=== PATIENT | female | born 1960 | race Caucasian/White ===

== ENCOUNTER 2016-11-12 18:33 | Observation (INO) | payer MEDICAID ==
[2016-11-12] MEDS ORDERED: HYDROmorphone HCL 1 MG/ML DISP.SYRIN IM ONE (19:20)
[2016-11-12] MEDS ORDERED: HYDROmorphone HCL 1 MG/ML DISP.SYRIN ONE (19:21)
[2016-11-12] MEDS ORDERED: HYDROCORTISONE SOD SUCCINATE 50 MG/ML VIAL IV ONE (19:22)
[2016-11-12 19:55] LABS: Hematocrit 37.1 % (37.0-47.0); Hemoglobin 12.4 gm/dL (12.5-16.0); Mean Cell Volume 87.1 fl (78-100); Mean Corpuscular Hemoglobin 29.1 pg (27-31); Mean Corpuscular Hgb Conc 33.4 g/dl (32-36); Mean Platelet Volume 8.9 fl (6.0-9.5); Platelet Count 469 K/mm3 (150-450); Red Blood Count 4.26 M/mm3 (4.2-5.4); Red Cell Distribution Width 15.6 % (11.5-14.0); White Blood Count 14.9 K/mm3 (4.0-10.5)
--- OUTSIDE RECORDS SUMMARY | 2016-11-12 19:56 | XMS REPORT | Continuity of Care Document ---
:1960 Author Organization [employer] Address [place] [address] Care Team Providers Name Role Phone Shaw Diaz V Primary Care Provider [phone] Source Comments This disclosure is being made pursuant to the EMUZE program and maynot contain all information available regarding this patient.[employer] Active Allergies and Adverse Reactions Allergen Noted Date Severity Reactions Comments Carbamazepine 09/11/2016 Unknown Combigan 09/11/2016 Unknown Doxepin Hcl 09/11/2016 Unknown Neurontin 09/11/2016 Unknown Pcn 09/11/2016 Unknown Pneumovax 23 09/11/2016 Unknown Spiriva Handihaler 09/11/2016 Unknown Sulfa Antibiotics 09/11/2016 Unknown Trazodone 09/11/2016 Unknown Triazolam 09/11/2016 Unknown Current Medications Be aware that medications may not be up to date as of this document. Alwaysverify current medications with the patient. Prescription Sig. Disp. Refills Start Date End Date Status acetaminophen Take 650 mg by Active (TYLENOL) 325 MG mouth 4 (four) tablet times daily as needed. Take with Tramadol ibuprofen Take 1 tablet 10/04/2016 Active (ADVIL,MOTRIN) 600 by mouth 3 MG tablet (three) times daily. traMADol (ULTRAM) Take 1 tablet 09/15/2016 Active 50 MG tablet by mouth 3 (three) times daily. montelukast Take 1 tablet 30 tablet 6 10/06/2016 Active (SINGULAIR) 10 MG by mouth tablet daily. VENTOLIN HFA 108 Inhale 1-2 1 Inhaler 5 10/06/2016 Active (90 Base) MCG/ACT puffs into the inhaler lungs every 4 (four) to 6 (six) hours as needed. zolpidem (AMBIEN) Take 1 tablet 30 tablet 0 10/06/2016 Active 10 MG tablet (10 mg total) by mouth nightly. promethazine Take 1 tablet 15 tablet 1 10/23/2016 Active (PHENERGAN) 25 MG by mouth every tablet 6 (six) hours as needed for Nausea. ALPRAZolam (XANAX) Take 1 tablet 150 tablet 0 11/03/2016 Active 1 MG tablet (1 mg total) by mouth 5 (five) times daily as needed. carisoprodol (SOMA) Take 1 tablet 150 tablet 0 11/03/2016 Active 350 MG tablet (350 mg total) by mouth 3 (three) times daily as needed for Muscle spasms. Take one tablet by mouth four times daily and 2 tablets at bedtime HYDROcodone-acetami Take 1 tablet 180 tablet 0 11/03/2016 Active nophen (NORCO) by mouth every 10-325 MG per 4 (four) to 6 tablet (six) hours as needed. for pain gabapentin Take 1 capsule 90 capsule 6 11/03/2016 Active (NEURONTIN) 100 MG by mouth 3 capsule (three) times daily. simvastatin (ZOCOR) Take 1 tablet 30 tablet 5 11/03/2016 Active 40 MG tablet by mouth nightly. sulfamethoxazole-tr Take 1 tablet 28 tablet 0 11/03/2016 Active imethoprim (BACTRIM by mouth 2 7 DS,SEPTRA DS) (two) times 800-160 MG per daily. tablet traMADol (ULTRAM) Take 2 tablets 240 tablet 0 11/04/2016 Active 50 MG tablet (100 mg total) by mouth 4 (four) times daily as needed. Take with tylenol mupirocin to affected 22 g 0 11/10/2016 Active (BACTROBAN) 2 % area. ointment ALPRAZolam (XANAX) Take 1 tablet 150 tablet 0 10/06/2016 Discontinued 1 MG tablet (1 mg total) 7 by mouth 5 (five) times daily as needed. carisoprodol (SOMA) Take 1 tablet 150 tablet 0 10/06/2016 Discontinued 350 MG tablet (350 mg total) 7 by mouth 3 (three) times daily as needed for Muscle spasms. Take one tablet by mouth four times daily and 2 tablets at bedtime gabapentin Take 1 capsule 90 capsule 6 10/06/2016 Discontinued (NEURONTIN) 100 MG by mouth 3 7 capsule (three) times daily. HYDROcodone-acetami Take 1 tablet 180 tablet 0 10/06/2016 Discontinued nophen (NORCO) by mouth every 7 10-325 MG per 4 (four) to 6 tablet (six) hours as needed. for pain simvastatin (ZOCOR) Take 1 tablet 30 tablet 5 10/06/2016 Discontinued 40 MG tablet by mouth 7 nightly. traMADol (ULTRAM) Take 2 tablets 240 tablet 0 10/06/2016 Discontinued 50 MG tablet (100 mg total) 7 by mouth 4 (four) times daily as needed. Take with tylenol mupirocin to affected 22 g 0 11/03/2016 Discontinued (BACTROBAN) 2 % area. 7 ointment Hospital, Clinic, or Other Ordered Dose Route Frequency Start Date End Date Status Facility Administered Medication triamcinolone acetonide 40mg IM Once 11/03/2016 11/03/2016 Ended (KENALOG-40) injection Active Problems Problem Noted Date Neuropathy (HCC) Most Recent Encounters Date Type Specialty Providers Description 11/10/2016 Refill Family Medicine Patricia Eden RN Cellulitis of both ears (Primary Dx) 11/04/2016 Refill Family Patricia Mills RN 11/03/2016 Office Visit Family Shaw Tejada DO Cellulitis of both ears (Primary Dx); Swelling of eyelid, left; Swelling of eyelid, right; Chronic bilateral low back pain, with sciatica presence unspecified; Anxiety; Brachial plexus neuralgia 10/23/2016 Refill Family Patricia Mills RN Nausea (Primary Dx) 10/06/2016 Office Visit Family Shaw Tejada DO Closed fracture of multiple ribs of left side, initial encounter (Primary Dx); Chronic low back pain, unspecified back pain laterality, with sciatica presence unspecified; Carotid artery occlusion without infarction, right; Anxiety; Brachial plexus neuralgia; Perennial allergic rhinitis, unspecified allergic rhinitis trigger 10/02/2016 Refill Family Praveen Peterson LPN Other insomnia ( Primary Dx) 10/02/2016 Telephone [facility] Praveen Peterson LPN Medication Question (Request) 10/02/2016 Refill Family Praveen Peterson LPN 10/02/2016 Telephone Family Medicine Praveen Redd LPN Medication Question (Request) 09/14/2016 Refill Family Medicine Patricia Eden, RN 09/11/2016 Office Visit Family Medicine Shaw Diaz DO Bronchitis ( Primary Dx); Perennial allergic rhinitis, unspecified allergic rhinitis trigger; Brachial plexus neuralgia; Anxiety 09/11/2016 Abstract Family Medicine Dottie Collins, RN Social History Tobacco Use Types Packs/Day Years Used Date Current Every Day Smoker 1 20 Alcohol Use Drinks/Week oz/Week Comments No Last Filed Vital Signs Vital Sign Reading Time Taken Blood Pressure 144/80 11/03/2016 11:46 AM CDT Pulse 105 11/03/2016 11:46 AM CDT Temperature 35.3 C (95.5 F) 09/11/2016 1:35 PM CDT Respiratory Rate 16 11/03/2016 11:46 AM CDT Height - - Weight 43.001 kg (94 lb 12.8 oz) 11/03/2016 11:46 AM CDT Body Mass Index - - Oxygen Saturation 97% 11/03/2016 11:46 AM CDT Plan of Care Health Maintenance Due Date Last Done Comments Hepatitis C Screening 02/05/1980 Pneumococcal Medium Risk 19-64 yo (1 of 1 - PPSV23) 1981 Tetanus/Pertussis (1 - Tdap) 1981 Pap Smear 1983 Colonoscopy 02/05/2012 Mammogram 02/05/2012 Well Adult Visit 02/05/2012 Influenza Immunization (#1) 2016 Results from Last 3 Months Not on file
[2016-11-12 19:57] LABS: Total Cells Counted 100
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
[2016-11-12] MEDS ORDERED: NORMAL SALINE IV SCH (20:00)
[2016-11-12] MEDS ORDERED: HYDROCORTISONE SODIUM SUCC IV SCH (20:00)
[2016-11-12 20:09] LABS: Albumin * 2.7 gm/dl (3.4-5.0); Anion Gap 11.3 mmol/L (6.8-13.8); BUN/Creatinine Ratio 9.3 (9.0-21.6); Bilirubin, Total 0.1 mg/dL (0.0-1.1); CRP 0.3 mg/dL (0.0-0.9); Ca. Corrected For Albumin 9.1 mg/dL (8.4-10.2); Calcium * 8.4 mg/dL (7.9-10.9); Carbon Dioxide 27.3 mmol/L (24-32.6); Potassium 3.6 mmol/L (3.4-4.6)
[2016-11-12] MEDS ORDERED: HYDROmorphone HCL 1 MG/ML DISP.SYRIN IV ONE (20:09)
[2016-11-12 20:14] LABS: Atypical (Reactive) Lymph 1 % (0-2); Basophil 2 % (0-1); Eosinophil 16 % (0-3); Lymphocyte 18 % (20-51); Monocyte 5 % (0-9); Neutrophil 58 % (42-75); Neutrophil # 8.6 K/mm3 (1.3-6.0); Platelet Estimate Increased (NORMAL); RBC Morphology Normal (NORMAL)
[2016-11-12] MEDS ORDERED: diphenhydrAMINE HCL 50 MG/ML VIAL ONE (20:39)
[2016-11-12] MEDS ORDERED: ONDANSETRON HCL/PF 2 MG/ML VIAL ONE (20:39)
[2016-11-12] MEDS ORDERED: diphenhydrAMINE HCL 50 MG/ML VIAL IV ONE ×2 (20:42→22:41)
[2016-11-12] MEDS ORDERED: ONDANSETRON HCL/PF 2 MG/ML VIAL IV ONE (20:42)
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
--- OUTSIDE RECORDS SUMMARY | 2016-11-12 22:00 | XMS REPORT | Continuity of Care Document ---
:1960 Author Organization [facility] [place] [address] Care Team Providers Name Role Phone Shaw Diaz V Primary Care Provider [phone] Source Comments This disclosure is being made pursuant to the [employer] program and maynot contain all information available regarding this patient.[facility] Active Allergies and Adverse Reactions Allergen Noted [...] Other insomnia ( Primary Dx) 10/02/2016 Telephone [facility] Praveen Peterson LPN Medication Question (Request) [...]
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
[2016-11-12] MEDS: FAMOTIDINE 20 MG TABLET PO SCH (23:18)
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
[2016-11-12] MEDS: METHYLPREDNISOLONE SOD SUCC 60 MG in WATER FOR INJ.,BACTERIOSTATIC 0 ML IV SCH (23:37)
[2016-11-13] MEDS: NORMAL SALINE 1,000 ML IV PRN ×2 (00:05→04:34)
[2016-11-13] MEDS ORDERED: KETOROLAC TROMETHAMINE 30 MG/ML VIAL IV PRN (00:13)
[2016-11-13] MEDS ORDERED: ALBUTEROL SULFATE 200 PUFF INHALER IH PRN (00:15)
[2016-11-13] MEDS ORDERED: ZOLPIDEM TARTRATE 10 MG TABLET PO PRN (00:15)
[2016-11-13] MEDS: HYDROcodone/ACETAMINOPHEN 1 EACH TABLET PO PRN ×2 (00:32→07:30)
[2016-11-13] MEDS: FAMOTIDINE 20 MG TABLET PO SCH (04:01)
[2016-11-13] MEDS: METHYLPREDNISOLONE SOD SUCC 60 MG in WATER FOR INJ.,BACTERIOSTATIC 0 ML IV SCH (04:02)
[2016-11-13] MEDS ORDERED: diphenhydrAMINE HCL 50 MG/ML VIAL IV PRN (04:45)
[2016-11-13 06:11] VITALS: BP 141/81
[2016-11-13] MEDS ORDERED: ALBUTEROL SULFATE 2.5 MG/3 ML VIAL.NEB IH PRN (06:20)
[2016-11-13] MEDS ORDERED: ALPRAZolam 1 MG TABLET PO PRN (07:36)
[2016-11-13] MEDS ORDERED: ASPIRIN 81 MG TABLET.DR PO SCH (09:00)
--- NOTE | 2016-11-13 09:44 | DS ---
Description of Stay: Did well with her rash following standard treatment for allergic treatment. While here, pushed for pain medication and to smoke cigarettes. Declined nicotine patches, stating that they didn't work. Procedures Performed: none Discharge Disposition: Home self care Disposition: Home self-care Condition: Fair Discharge Diet: General/regular food Referrals: Joel Fuchs DO [Primary Care Provider] - Problem Oriented Discharge Instructions to Patient/Family: Drug Rash Additional Patient Instructions (free text): Avoid sulfa Follow up with your doctor in 3 days. Prescriptions (Any new or edited meds): Diphenhydramine HCl [Benadryl] 25 mg PO QID #40 capsule Ranitidine HCl [Zantac] 150 mg PO BID #20 tab predniSONE [Deltasone] 20 mg PO BID #20 tablet Complete Home Medications List: Complete Home Medication List: Singulair 10 mg PO HS 11/17/12 Tramadol HCl 50 mg PO QID 11/17/12 HYDROcodone/ACETAMINOPHEN [[place] 5-325] 1 tab PO Q4H PRN #40 tab 12/09/15 Aspirin [Aspirin EC] 81 mg PO DAILY #30 tablet. 12/22/15 Simvastatin [Zocor] 40 mg PO HS #30 tab 12/22/15 Zolpidem Tartrate [Ambien] 10 mg PO HS PRN #30 tab 12/22/15 ALPRAZolam [Xanax] 1 mg PO QID PRN 01/20/16 Albuterol Sulfate [Ventolin HFA] 2 puff IH Q6H PRN 01/20/16 Carisoprodol [Soma] 350 mg PO TID 11/12/16 Carisoprodol [Soma] 700 mg PO HS 11/12/16 Diphenhydramine HCl [Benadryl] 25 mg PO QID #40 capsule 11/13/16 Ranitidine HCl [Zantac] 150 mg PO BID #20 tab 11/13/16 predniSONE [Deltasone] 20 mg PO BID #20 tablet 11/13/16
[2016-11-13] MEDS ORDERED: MONTELUKAST SODIUM 10 MG TABLET PO SCH (21:00)
[2016-11-13] MEDS ORDERED: SIMVASTATIN 40 MG TABLET PO SCH (21:00)
== END 2016-11-13 11:01 | disposition home or self-care (01) ==
LOC: ER 18:33 → MS 21:51 → UNDOADMOB 21:51
PROVIDERS: ADMIT Nurse Practitioner Critical Care Medicine; ATTEND Allergy & Immunology
DX: L23.3 Allergic contact dermatitis due to drugs in contact with skin (principal); T49.0X5A Adverse effect of local antifungal, anti-infective and anti-inflammatory drugs, initial encounter; F41.8 Other specified anxiety disorders; J44.9 Chronic obstructive pulmonary disease, unspecified; Z72.0 Tobacco use; J45.909 Unspecified asthma, uncomplicated; E78.5 Hyperlipidemia, unspecified; Z76.5 Malingerer [conscious simulation]
CPT/HCPCS: 36415; 80053; 85025; 85652; 86140; 96365; 96372; 96375; 96376; 99284; G0378; J2405

== ENCOUNTER 2017-03-01 12:02 | Emergency (ER) | payer MEDICAID ==
[2017-03-01 12:37] VITALS: BP 103/76
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
== END 2017-03-01 13:27 | disposition home or self-care (01) ==
LOC: ER 12:02
DX: R07.89 Other chest pain (principal); V49.9XXD Car occupant (driver) (passenger) injured in unspecified traffic accident, subsequent encounter

== ENCOUNTER 2017-03-15 10:55 | Emergency (ER) | payer MEDICAID ==
[2017-03-15] MEDS ORDERED: KETOROLAC TROMETHAMINE 60 MG/2 ML VIAL IM ONE ×2 (12:03→12:16)
--- NOTE | 2017-03-15 12:05 | ERNOTE ---
Upper Extremity HPI - Narrative Date of Service: 03/15/17 - General Extremities Pain Location: thumb: right Time Seen by Provider: 03/15/17 11:45 Source: patient Exam Limitations: no limitations - Immun/Allergies/Home Medications Immunizations: IMMUNIZATION HX Immunizations Up to Date Yes History of Influenza Vaccine No Hx Pneumococcal Vaccination No Allergies/Adverse Reactions: Allergies Allergy/AdvReac Type Severity Reaction Status Date / Time penicillin G Allergy Verified 11/12/16 19:11 Sulfa (Sulfonamide Allergy Verified 11/12/16 19:11 Antibiotics) [Sulfa(Sulfonamide Antibiotics)] Home Medications: HOME MEDICATIONS Singulair 10 mg PO HS 11/17/12 [Last Taken Unknown] HYDROcodone/ACETAMINOPHEN [[place] 5-325] 1 tab PO Q4H PRN #40 tab 12/09/15 [Last Taken Unknown] Aspirin [Aspirin EC] 81 mg PO DAILY #30 tablet. 12/22/15 [Last Taken Unknown] Simvastatin [Zocor] 40 mg PO HS #30 tab 12/22/15 [Last Taken Unknown] Zolpidem Tartrate [Ambien] 10 mg PO HS PRN #30 tab 12/22/15 [Last Taken Unknown] Albuterol Sulfate [Ventolin HFA] 2 puff IH Q6H PRN 01/20/16 [Last Taken Unknown] Carisoprodol [Soma] 700 mg PO HS 11/12/16 [Last Taken Unknown] Diphenhydramine HCl [Benadryl] 25 mg PO QID #40 capsule 11/13/16 [Last Taken Unknown] Ranitidine HCl [Zantac] 150 mg PO BID #20 tab 11/13/16 [Last Taken Unknown] predniSONE [Deltasone] 20 mg PO BID #20 tablet 11/13/16 [Last Taken Unknown] Carisoprodol [Soma] 350 mg PO QID #56 tablet 03/01/17 [Last Taken Unknown] traMADol HCL [Ultram] 50 - 100 mg PO Q6H PRN #56 tablet 03/01/17 [Last Taken Unknown] ALPRAZolam [Xanax] 1 mg PO QID PRN #12 tablet 03/15/17 [Last Taken Unknown] Carisoprodol [Soma] 350 mg PO QID #20 tab 03/15/17 [Last Taken Unknown] Carisoprodol [Soma] 700 mg PO HS #6 tablet 03/15/17 [Last Taken Unknown] HYDROcodone/ACETAMINOPHEN [[place] 5-325 Tablet] 1 tab PO Q4H PRN #12 tab [Last Taken Unknown] - History of Present Illness Narrative: Pt. with chronic pain and anxiety comes in with R thumb pain after slamming it in betwen her dog and the side of her bed this morning. Pt. denies any numbness and tingling but does state that movement is difficult due to swelling. Pt. states that she is also out of her chronic medications at this time as she is between doctors. Review of Systems - Review of Systems Constitutional: Present: no symptoms reported. Absent: recent illness, fever, chills, weakness, fatigue, malaise EYE: Present: no symptoms reported ENT: Present: no symptoms reported Respiratory: Present: no symptoms reported. Absent: shortness of breath, cough , wheezing Cardiology: Present: no symptoms reported. Absent: chest pain, palpitations, edema Gastrointestinal/Abdominal: Present: no symptoms reported. Absent: nausea, vomiting, diarrhea Genitourinary: Present: no symptoms reported Musculoskeletal: Present: joint pain - R thumb pain, joint swelling - R thumb. Absent: back pain Skin: Present: no symptoms reported. Absent: rash, change in color, change in hair/nails Neurological: Present: no symptoms reported. Absent: headache, dizziness/light- headedness, numbness, tingling All Other Systems: All systems neg except as marked - Patient's Past Medical History Patient History - Medical: Anxiety, Chronic Pain, Depression, Glaucoma Patient History - Cardiac/Respiratory: Asthma, COPD, Hyperlipidemia, TIA Patient History - Cancer: No Hx of Cancer Patient History - Surgical Procedures: Appendectomy, Hysterectomy, T & A Patient History - Other: None - Family History Mother Family History - Medical: Family History - Cardiac/Respiratory: CVA/Stroke, Hyperlipidemia Family History - Cancer: Throat Father Family History - Medical: Family History - Cardiac/Respiratory: CVA/Stroke Family History - Cancer: No pertinent family hx Brother Family History - Medical: No pertinent hx, Diabetes Type 2 Family History - Cardiac/Respiratory: CVA/Stroke Family History - Cancer: No pertinent family hx Sister Family History - Medical: No pertinent hx Family History - Cardiac/Respiratory: No pertinent hx Family History - Cancer: No pertinent family hx - Social History Abuse History: No History of abuse Psych History: Hx of Anxiety, Hx of Depression Smoking Status: Current every day smoker Have you smoked in the past 12 months: Yes - Immunizations Immunizations Up to Date: Yes Hx Pneumococcal Vaccination: No History of Influenza Vaccine: No Physical Exam - Physical Exam General Appearance: Present: wd/wn, alert, no apparent distress Head Exam: Present: normal inspection, no evidence of injury Eye Exam: Normal inspection: bilateral, PERRL: bilateral, EOMI: bilateral Ears, Nose, Throat: Present: normal ENT inspection, normal pharynx Neck: Present: normal inspection, nontender. Absent: lymphadenopathy (R), lymphadenopathy (L) Respiratory: Present: no respiratory distress, normal breath sounds, no accessory muscle use, chest nontender, lungs clear Cardiovascular/Chest: Present: regular rate, rhythm, no murmur, normal peripheral pulses Back Exam: Present: normal inspection, normal range of motion, no CVA tenderness , no vertebral tenderness Extremity Exam: Present: bony tenderness - R distal thumb, joint swelling - R distal thumb Neurological Exam: Present: alert, oriented, normal mood/affect, no motor/ sensory deficits Skin Exam: Present: normal color, warm/dry. Absent: pallor, skin rash ED Progress - Date and Time Seen: Date and Time: 03/15/17 12:[address] Eaton and he suggests having pt. splinted and having her follow up in the office next week. - Vital Signs Patient's Vital Signs:: I have reviewed the patient's vital signs. Vital Signs: Vital Signs 03/15/17 11:10 Temperature 36.2 C L Pulse Rate 79 Respiratory 16 Rate Blood Pressure 124/71 O2 Sat by Pulse 95 Oximetry - Progress/Reassessment Chief Complaint: Hand Injury/Pain Departure Clinical Impression: Medication refill Fracture of thumb, right, closed Qualifiers: Encounter type: initial encounter Phalanx: distal Fracture alignment: displaced Qualified Code(s): S62.521A - Displaced fracture of distal phalanx of right thumb, initial encounter for closed fracture Chronic pain Qualifiers: Chronic pain type: chronic pain syndrome Qualified Code(s): G89.4 - Chronic pain syndrome - Departure Disposition: Home self-care Condition: Fair Instructions: Chronic Pain Additional Instructions: Please find chronic pain doctor and follow up with primary provider in 2-3 days. Prescriptions: ALPRAZolam [Xanax] 1 mg PO QID PRN #12 tablet PRN Reason: Anxiety Carisoprodol [Soma] 350 mg PO QID #20 tab Carisoprodol [Soma] 700 mg PO HS #6 tablet HYDROcodone/ACETAMINOPHEN [[place] 5-325 Tablet] 1 tab PO Q4H PRN #12 tab PRN Reason: Pain
[2017-03-15 12:27] VITALS: BP 148/97
== END 2017-03-15 12:28 | disposition home or self-care (01) ==
LOC: ER 10:55
PROC: 2W3GX1Z Immobilization of Right Thumb using Splint (ICD-10-PCS; principal; 2017-03-15)
DX: S62.521A Displaced fracture of distal phalanx of right thumb, initial encounter for closed fracture (principal); G89.4 Chronic pain syndrome; X58.XXXA Exposure to other specified factors, initial encounter; Y93.9 Activity, unspecified; Y92.003 Bedroom of unspecified non-institutional (private) residence as the place of occurrence of the external cause; J44.9 Chronic obstructive pulmonary disease, unspecified; E78.5 Hyperlipidemia, unspecified; F41.8 Other specified anxiety disorders; F17.200 Nicotine dependence, unspecified, uncomplicated

== ENCOUNTER 2017-04-08 15:21 | Emergency (ER) | payer MEDICAID ==
--- NOTE | 2017-04-08 17:32 | ERNOTE ---
<Bone,Te - Last Filed: 04/08/17 17:28> Medical Problem HPI - General Chief Complaint: General Assessment Time Seen by Provider: 04/08/17 17:00 - Immun/Allergies/Home Medications Immunizations: IMMUNIZATION HX Immunizations Up to Date Yes History of Influenza Vaccine No Hx Pneumococcal Vaccination No Allergies/Adverse Reactions: Allergies penicillin G Allergy (Verified 04/08/17 15:47) Sulfa (Sulfonamide Antibiotics) [Sulfa(Sulfonamide Antibiotics)] Allergy ( Verified 04/08/17 15:47) Home Medications: HOME MEDICATIONS Singulair 10 mg PO HS 11/17/12 [Last Taken Unknown] HYDROcodone/ACETAMINOPHEN [[place] 5-325] 1 tab PO Q4H PRN #40 tab 12/09/15 [Last Taken Unknown] Aspirin [Aspirin EC] 81 mg PO DAILY #30 tablet. 12/22/15 [Last Taken Unknown] Simvastatin [Zocor] 40 mg PO HS #30 tab 12/22/15 [Last Taken Unknown] Zolpidem Tartrate [Ambien] 10 mg PO HS PRN #30 tab 12/22/15 [Last Taken Unknown] Albuterol Sulfate [Ventolin HFA] 2 puff IH Q6H PRN 01/20/16 [Last Taken Unknown] Carisoprodol [Soma] 700 mg PO HS 11/12/16 [Last Taken Unknown] Diphenhydramine HCl [Benadryl] 25 mg PO QID #40 capsule 11/13/16 [Last Taken Unknown] Ranitidine HCl [Zantac] 150 mg PO BID #20 tab 11/13/16 [Last Taken Unknown] predniSONE [Deltasone] 20 mg PO BID #20 tablet 11/13/16 [Last Taken Unknown] Carisoprodol [Soma] 350 mg PO QID #56 tablet 03/01/17 [Last Taken Unknown] traMADol HCL [Ultram] 50 - 100 mg PO Q6H PRN #56 tablet 03/01/17 [Last Taken Unknown] ALPRAZolam [Xanax] 1 mg PO QID PRN #12 tablet 03/15/17 [Last Taken Unknown] Carisoprodol [Soma] 350 mg PO QID #20 tab 03/15/17 [Last Taken Unknown] Carisoprodol [Soma] 700 mg PO HS #6 tablet 03/15/17 [Last Taken Unknown] HYDROcodone/ACETAMINOPHEN [[place] 5-325 Tablet] 1 tab PO Q4H PRN #12 tab [Last Taken Unknown] - Patient's Past Medical History Patient History - Medical: Anxiety, Chronic Pain, Depression, Glaucoma Patient History - Cardiac/Respiratory: Asthma, COPD, Hyperlipidemia, TIA Patient History - Cancer: No Hx of Cancer Patient History - Surgical Procedures: Appendectomy, Hysterectomy, T & A Patient History - Other: None LMP (females 10-50): Menopausal - Family History Mother Family History - Medical: Family History - Cardiac/Respiratory: CVA/Stroke, Hyperlipidemia Family History - Cancer: Throat Father Family History - Medical: Family History - Cardiac/Respiratory: CVA/Stroke Family History - Cancer: No pertinent family hx Brother Family History - Medical: No pertinent hx, Diabetes Type 2 Family History - Cardiac/Respiratory: CVA/Stroke Family History - Cancer: No pertinent family hx Sister Family History - Medical: No pertinent hx Family History - Cardiac/Respiratory: No pertinent hx Family History - Cancer: No pertinent family hx - Social History Living Situations: home Abuse History: No History of abuse Psych History: Hx of Anxiety, Hx of Depression Smoking Status: Current every day smoker Have you smoked in the past 12 months: Yes Alcohol Use: none Drug Use: none - Immunizations Immunizations Up to Date: Yes Hx Pneumococcal Vaccination: No History of Influenza Vaccine: No ED Progress - Vital Signs Vital Signs: Vital Signs 04/08/17 15:43 Temperature 36.4 C L Pulse Rate 105 H Respiratory 16 Rate Blood Pressure 99/61 O2 Sat by Pulse 95 Oximetry - Progress/Reassessment Chief Complaint: General Assessment - Transfer of Care Physician Sign Out: Te Pedro Receiving Physician: Carolin Crane Pending Results: Physician/consult arrival Expected Disposition: Discharge Departure Clinical Impression: Rib pain on left side, Medication refill - Departure Disposition: Home Follow Up Needed Condition: Good Instructions: Medicine Refill at the Emergency Department, Chest Wall Pain Additional Instructions: continuois any previous home medications. try to not let your medications run out. follow up with your PCP regarding your medications. Referrals: Juliann Johns, [employer] [Primary Care Provider] - <Carolin Crane - Last Filed: 04/08/17 18:06> Medical Problem HPI - Narrative Date of Service: 04/08/17 - General Source: patient Exam Limitations: no limitations - Immun/Allergies/Home Medications Immunizations: IMMUNIZATION HX Immunizations Up to Date Yes History of Influenza Vaccine No Hx Pneumococcal Vaccination No - History of Present History Narrative: Patient is here for chronic left-sided rib pain patient has had Soma and Ultram for pain and she is out of her meds and she wants a refill. Review of Systems - Review of Systems Constitutional: Present: no symptoms reported, decreased activity level ENT: Present: no symptoms reported Respiratory: Present: no symptoms reported Gastrointestinal/Abdominal: Present: no symptoms reported Genitourinary: Present: no symptoms reported Musculoskeletal: Present: See HPI, other - musculoskeletal left-sided rib pain since September 2016 Physical Exam - Physical Exam General Appearance: Present: wd/wn, alert, no apparent distress Head Exam: Present: normal inspection, no evidence of injury Ears, Nose, Throat: Present: normal ENT inspection Neck: Present: normal inspection, nontender, supple Respiratory: Present: no respiratory distress, normal breath sounds, no accessory muscle use, chest nontender, lungs clear Cardiovascular/Chest: Present: regular rate, rhythm, no murmur, normal peripheral pulses Gastrointestinal/Abdominal: Present: normal bowel sounds, nontender Extremity Exam: Present: normal inspection, non-tender, normal range of motion, no edema ED Progress - Vital Signs Patient's Vital Signs:: I have reviewed the patient's vital signs. Vital Signs: Vital Signs 04/08/17 15:43 Temperature 36.4 C L Pulse Rate 105 H Respiratory 16 Rate Blood Pressure 99/61 O2 Sat by Pulse 95 Oximetry
[2017-04-08 19:53] VITALS: BP 122/79
== END 2017-04-08 17:48 | disposition home or self-care (01) ==
LOC: ER 15:21
DX: R07.81 Pleurodynia (principal); Z79.899 Other long term (current) drug therapy; F17.200 Nicotine dependence, unspecified, uncomplicated